=== PATIENT | male | born 1995 | race Two or more races ===

== ENCOUNTER 2020-06-07 14:24 | Emergency (ER) | payer BC, OTHER ==
[~2020-06-07] VITALS: Ht 172.7 cm; Wt 127.0 kg
[2020-06-07] MEDS ORDERED: ACETAMINOPHEN 325 MG TAB PO ONE (15:30)
[2020-06-07 17:30] VITALS: BP 112/69
== END 2020-06-07 17:26 | disposition home or self-care (01) ==
LOC: ER 14:24
DX: J20.9 Acute bronchitis, unspecified (principal); Z20.828 Contact with and (suspected) exposure to other viral communicable diseases
CPT/HCPCS: 36415; 71045; 87426